=== PATIENT | female | born 1970 | race Caucasian/White ===

== ENCOUNTER 2018-03-25 21:28 | Emergency (ER) | payer BC ==
[2018-03-25 21:44] VITALS: RESP 18; TEMP 98.8; O2SAT 100
[2018-03-25] MEDS ORDERED: SULFAMETHOXAZOLE/TRIMETHOPRI 800/160 MG PO ONE (22:03)
[2018-03-25] MEDS ORDERED: SULFAMETHOXAZOLE/TRIMETHOPRI 800/160 MG ONE (22:11)
[2018-03-25 22:23] VITALS: BP 137/103; PULSE 75
== END 2018-03-25 22:20 | disposition home or self-care (01) ==
LOC: ED 21:28
DX: L03.116 Cellulitis of left lower limb (principal); T81.4XXA Infection following a procedure, initial encounter; B99.9 Unspecified infectious disease
CPT/HCPCS: 99282; A6402; A9270-GY